=== PATIENT | female | born 1965 | race Two or more races ===

== ENCOUNTER 2017-07-03 12:21 | Emergency (ER) | payer BC ==
[2017-07-03 12:26] VITALS: BP 123/87; PULSE 90; TEMP 98; BMI 23.3
--- NOTE | 2017-07-03 13:59 | PDOC ---
History of Present Illness - General History Source: Patient Exam Limitations: No Limitations <Diann Schulz - Last Filed: 07/03/17 14:08> - History of Present Illness Initial Comments: 07/03/17 14:00 The patient is a 51 year old female, with a significant past medical history of migraines, calcemia, who presents to the ED with approx. 2-3 years of chronic right shoulder pain. The patient reports she was diagnosed with calcemia approx. 3 years ago and saw an orthopedist Dr. Hal Singh who performed a MRI and x-ray. The patient reports the right shoulder pain is worse with movement. The patient reports taking Tylenol for the right shoulder pain with mild relief. She denies recent injury or trauma. Allergies: Penicillin, Aspirin <Telly Dye - Last Filed: 07/03/17 14:16> - General Chief Complaint: Pain Stated Complaint: RT ARM PAIN Time Seen by Provider: 07/03/17 13:18 Past History - Past Medical History COPD: No Other medical history: MIGRAINES, THALASEMIA - Surgical History Abdominal Surgery: Yes Appendectomy: Yes - Suicide/Smoking/Psychosocial Hx Smoking History: Never smoked Have you smoked in the past 12 months: No Information on smoking cessation initiated: No Hx Alcohol Use: Yes (OCCASIONALLY) Drug/Substance Use Hx: No Substance Use Type: Alcohol <Diann Schulz - Last Filed: 07/03/17 14:08> <Telly Dye - Last Filed: 07/03/17 14:16> - Past Medical History Allergies/Adverse Reactions: Allergies Allergy/AdvReac Type Severity Reaction Status Date / Time aspirin Allergy Intermediate swelling, Verified 07/03/17 12:22 sob, rash Penicillins Allergy Intermediate swelling, Verified 07/03/17 12:22 sob, rash Home Medications: Ambulatory Orders Diazepam [Valium] 5 mg PO TID PRN #14 tablet 11/21/14 Doxycycline Monohydrate [Monodox] 100 mg PO Q12H #28 capsule 11/21/14 Naproxen [Naprosyn -] 500 mg PO BID PRN #20 tablet 11/21/14 Acetaminophen W/ Codeine #3 [Tylenol # 3 -] 1 combo PO Q4H PRN #14 tablet MDD 4 10/08/15 Naproxen [Naprosyn] 500 mg PO BID #20 tablet 07/03/17 Oxycodone HCl/Acetaminophen [Percocet 5-325 mg Tablet] 1 tab PO Q6H #12 tablet MDD 4 07/03/17 Review of Systems - Review of Systems Respiratory: No: Cough, Shortness of Breath, Wheezing, Productive cough Cardiac (ROS): No: Symptoms Reported, Chest Pain ABD/GI: No: Symptoms Reported <Diann Schulz - Last Filed: 07/03/17 14:08> - Review of Systems Comments:: 07/03/17 14:01 MUSCULOSKELETAL: +Right shoulder pain. No neck or back pain. <Telly Dye - Last Filed: 07/03/17 14:16> *Physical Exam - Vital Signs Last Vital Signs Temp Pulse Resp BP Pulse Ox 98.0 F 90 18 123/87 100 07/03/17 12:24 07/03/17 12:24 07/03/17 12:24 07/03/17 12:24 07/03/17 12:24 <Diann Schulz - Last Filed: 07/03/17 14:08> - Vital Signs Last Vital Signs Temp Pulse Resp BP Pulse Ox 98.0 F 90 18 123/87 100 07/03/17 12:24 07/03/17 12:24 07/03/17 12:24 07/03/17 12:24 07/03/17 12:24 - Physical Exam Comments: 07/03/17 14:01 GENERAL: Awake, alert, and fully oriented. HEAD: No signs of trauma. NECK: Normal ROM, supple, no lymphadenopathy, JVD, or masses LUNGS: Breath sounds equal, clear to auscultation bilaterally. No wheezes, and no crackles HEART: Regular rate and rhythm, normal S1 and S2, no murmurs, rubs or gallops ABDOMEN: Soft, nontender, normoactive bowel sounds. No guarding, no rebound. No masses EXTREMITIES: +Limited ROM right shoulder secondary to pain. No edema. No clubbing or cyanosis. No cords, erythema. NEUROLOGICAL: Cranial nerves II through XII grossly intact. Normal speech, normal gait SKIN: Warm, Dry, normal turgor, no rashes or lesions noted. <Telly Dye - Last Filed: 07/03/17 14:16> Medical Decision Making - Medical Decision Making 07/03/17 14:10 A/P: Patient with chronic right shoulder pain, reports that she's been treated with cortisone injections for calcifications. Has an appointment on for orthopedist states she's taken Tylenol at home without resolved symptoms. Patient reports being allergic to aspirin however has taken Naprosyn in the past , no reaction with resolve of symptoms will give Naprosyn in the ER. Arm sling , follow-up with orthopedics <Diann Schulz - Last Filed: 07/03/17 14:08> *DC/Admit/Observation/Transfer - Discharge Dispostion Admit: No <Diann Schulz - Last Filed: 07/03/17 14:08> - Attestations Scribe Attestion: 07/03/17 14:02 Documentation prepared by Telly Dye, acting as medical claims manager for Diann Schulz NP. <Telly Dye - Last Filed: 07/03/17 14:16> Diagnosis at time of Disposition: Tendonitis of shoulder, right - Discharge Dispostion Disposition: HOME Condition at time of disposition: Stable - Prescriptions Prescriptions: Naproxen [Naprosyn] 500 mg PO BID #20 tablet Oxycodone HCl/Acetaminophen [Percocet 5-325 mg Tablet] 1 tab PO Q6H #12 tablet MDD 4 - Patient Instructions Additional Instructions: Please keep sling on, follow up with ortho on . - Post Discharge Activity Forms/Work/School Notes: Back to Work
[2017-07-03] MEDS ORDERED: NAPROXEN 500 MG TABLET (FP) PO ONE (14:08)
[2017-07-03] MEDS ORDERED: NAPROXEN 500 MG TABLET (FP) ONE (14:12)
== END 2017-07-03 14:23 | disposition home or self-care (01) ==
LOC: JERFT 12:21
DX: M75.81 Other shoulder lesions, right shoulder (principal)
CPT/HCPCS: 99281-25

== ENCOUNTER 2021-09-24 07:43 | Emergency (ER) | payer BC ==
[2021-09-24 08:19] VITALS: BMI 28.1
[2021-09-24] MEDS ORDERED: BEBTELOVIMAB (EUA) 175 MG/2 ML VIAL IVPUSH ONE (09:46)
[2021-09-24] MEDS ORDERED: ACETAMINOPHEN 500 MG TABLET (FP) PO ONE (09:58)
[2021-09-24] MEDS ORDERED: SODIUM CHLORIDE 0.9% 500 ML INFUS.BAG IV ONE (10:00)
[2021-09-24] MEDS ORDERED: ACETAMINOPHEN 1000 MG/100 ML BAG IVPB ONE (10:04)
[2021-09-24] MEDS ORDERED: METOCLOPRAMIDE HCL INJECTION 10 MG/2 ML VIAL IVPUSH ONE (10:04)
[2021-09-24] MEDS ORDERED: AZITHROMYCIN 500 MG TABLET PO ONE (10:09)
[2021-09-24] MEDS ORDERED: ACETAMINOPHEN INJECTION 100 ML IVPB ONE (10:36)
[2021-09-24] MEDS ORDERED: METOCLOPRAMIDE HCL INJECTION 10 MG/2 ML VIAL ONE (10:36)
[2021-09-24] MEDS ORDERED: AZITHROMYCIN IVPB 500 MG/250 ML BAG IVPB ONE (10:37)
[2021-09-24 10:59] LABS: BASO % 0.4 % (0-2.0); HEMATOCRIT 31.9 % (32.4-45.2); HEMOGLOBIN 10.4 GM/dL (10.7-15.3); LYMPH % 12.5 % (8-40); MCH 25.6 pg (25.7-33.7); MCHC 32.6 g/dl (32.0-36.0); MEAN CELL VOLUME 78.5 fl (80-96); MEAN PLT VOLUME 8.7 fl (7.5-11.1); MONO % 8.1 % (3.8-10.2); PLATELET COUNT 343 10^3/uL (134-434); RBC 4.07 M/mm3 (3.60-5.2); RDW 14.5 % (11.6-15.6)
[2021-09-24 11:17] LABS: BLOOD UREA NITROGEN 6.9 mg/dL (7-18)
[2021-09-24 11:34] LABS: CREATININE 0.5 mg/dL (0.55-1.3)
[2021-09-24 12:11] LABS: CALCIUM 7.9 mg/dL (8.5-10.1)
[2021-09-24 12:12] LABS: BLOOD UREA NITROGEN 7.1 mg/dL (7-18)
[2021-09-24 12:15] LABS: CREATININE 0.3 mg/dL (0.55-1.3)
[2021-09-24 13:13] VITALS: BP 130/76; PULSE 100; TEMP 99.2
== END 2021-09-24 13:44 | disposition home or self-care (01) ==
LOC: JER 07:43
PROC: 3E0333Z Introduction of Anti-inflammatory into Peripheral Vein, Percutaneous Approach (ICD-10-PCS; principal; 2021-09-24)
PROC: 3E033GC Introduction of Other Therapeutic Substance into Peripheral Vein, Percutaneous Approach (ICD-10-PCS; 2021-09-24)
PROC: 3E03329 Introduction of Other Anti-infective into Peripheral Vein, Percutaneous Approach (ICD-10-PCS; 2021-09-24)
DX: J12.82 Pneumonia due to coronavirus disease 2019 (principal)
CPT/HCPCS: 36415; 71046-TC-FY; 80048; 84484; 85025; 93005; 93010; 99285-25; Q0222